=== PATIENT | male | born 1990 | race Caucasian/White ===

== ENCOUNTER 2023-12-11 08:14 | Day surgery (SDC) | payer OTHER ==
[~2023-12-11] VITALS: Ht 165.1 cm; Wt 98.2 kg
[2023-12-11] MEDS: NS 1,000 ML IV ONE (08:27)
[2023-12-11 10:34] VITALS: TEMP 97.2
[2023-12-11 11:16] VITALS: BP 149/90; O2SAT 97
== END 2023-12-11 11:36 | disposition home or self-care (01) ==
LOC: M OPP 08:14
PROVIDERS: ATTEND Internal Medicine Gastroenterology
DX: K62.5 Hemorrhage of anus and rectum (principal); D12.2 Benign neoplasm of ascending colon; D12.5 Benign neoplasm of sigmoid colon; D12.3 Benign neoplasm of transverse colon; Z80.0 Family history of malignant neoplasm of digestive organs; F17.200 Nicotine dependence, unspecified, uncomplicated